=== PATIENT | female | born 1970 | race African-American/Black ===

== ENCOUNTER 2017-01-16 10:57 | Emergency (ER) | payer OTHER ==
[~2017-01-16] VITALS: Ht 172.7 cm; Wt 90.7 kg
--- NOTE | 2017-01-16 11:42 | ED GENERAL ADULT ---
History of Present Illness General Chief Complaint: Chest Pain Stated Complaint: CHEST PAIN Source: patient Exam Limitations: no limitations Vital Signs & Intake/Output Vital Signs & Intake/Output Vital Signs Date Time Temp Pulse Resp B/P Pulse O2 O2 Flow FiO2 Ox Delivery Rate 01/16 1226 99.0 90 22 123/60 94 Room Air 01/16 1112 98.8 84 18 138/82 99 Room Air Allergies Coded Allergies: NO KNOWN ALLERGIES (04/22/12) Triage Note: C/O COUGH, FEVER, SWEATING X 4 DAYS, CHEST PAIN X 3 DAYS. PAIN WORSE ON INSPIRATION. EKG DONE ON ARRIVAL. Triage Nurses Notes Reviewed? yes Onset: Gradual Duration: day(s):, continues in ED, intermittent Severity: severe : No Patient currently breastfeeds: No HPI: Patient presents for evaluation of chest pain or heart palpitations along with coughing, diarrhea, night sweats, chills and fever that began about 4 days ago. Patient has not been able to tolerate solid food and has resorted to a liquid diet. Patient also feels lightheaded with position changes. Nothing seems to make her feel better or worse. Patient also states she has had a nonproductive cough that seems to be improving. Past History Travel History Traveled to [place] past 21 day No Medical History Any Pertinent Medical History? see below for history Neurological: NONE EENT: NONE Cardiovascular: NONE Respiratory: NONE Gastrointestinal: NONE Hepatic: NONE Renal: NONE Musculoskeletal: NONE Psychiatric: NONE Endocrine: NONE Surgical History Surgical History: non-contributory Psychosocial History What is your primary language Syrian Tobacco Use: Never used Family History Hx Contributory? No Review of Systems Review of Systems Constitutional: Reports: see HPI. EENTM: Reports: no symptoms. Respiratory: Reports: cough. Cardiovascular: Reports: chest pain. GI: Reports: see HPI. Genitourinary: Reports: no symptoms. Musculoskeletal: Reports: no symptoms. Skin: Reports: no symptoms. Neurological/Psychological: Reports: no symptoms. Hematologic/Endocrine: Reports: no symptoms. Immunologic/Allergic: Reports: no symptoms. All Other Systems: Reviewed and Negative Physical Exam Physical Exam General Appearance: SEE BELOW Comments: Gen.: Well-nourished, well-developed, no acute respiratory distress. Head: Normocephalic, atraumatic. Eyes: Mildly sunken orbits Ears: Normal inspection bilaterally Nose: Normal inspection Throat/mouth : Moist mucosa, coated tongue Neck: Supple, full range of motion, no goiter Heart: Regular rate and rhythm, no murmurs rubs or gallops Lungs: Clear to auscultation bilaterally with normal air entry Chest: Nontender Back: Normal range of motion Abdomen: Soft, nontender, nondistended, normal bowel sounds Extremities: Normal range of motion grossly, equal radial pulses, no cyanosis clubbing or edema Neurologic: Cranial nerves grossly intact, speech is clear Skin: warm and dry, pallor Psychiatric: Calm, cooperative, no apparent delusions or hallucinations Core Measures ACS in differential dx? No CVA/TIA Diagnosis: No Severe Sepsis Present: No Septic Shock Present: No Progress Differential Diagnoses I considered the following diagnoses in my evaluation of the patient: Viral syndrome, coronary artery disease/acute coronary syndrome, chest wall strain Plan of Care: Orders Procedure Date/time Status VIRAL CULTURE 01/16 1147 Active RAPID VIRAL INFLUENZA A 01/16 114 Complete URINALYSIS 01/16 114 Active COMPREHENSIVE METABOLIC PANEL 01/16 1141 Active CBC WITHOUT DIFFERENTIAL 01/16 114 Complete EKG 01/16 1100 Active Laboratory Tests 01/16/17 1200: Sodium Pending, Potassium Pending, Chloride Pending, Carbon Dioxide Pending, Anion Gap Pending, BUN Pending, Creatinine Pending, BUN/Creatinine Ratio Pending , Glucose Pending, Calcium Pending, Total Bilirubin Pending, AST Pending, ALT Pending, Alkaline Phosphatase Pending, Total Protein Pending, Albumin Pending, Globulin Pending, Albumin/Globulin Ratio Pending, CBC w Diff NO MAN DIFF REQ, RBC 5.21, MCV 86.3, MCH 29.3, RDW 13.5, MPV 8.8, Gran % 66.3, Lymphocytes % 19.9 L, Monocytes % 13.3 H, Eosinophils % 0.1, Basophils % 0.4, Absolute Granulocytes 3.5, Absolute Lymphocytes 1.0 L, Absolute Monocytes 0.7 H, Absolute Eosinophils 0, Absolute Basophils 0, PUBS MCHC 34.0 01/16/17 1147: Virus Culture Pending Microbiology 01/16 1147 NASOPHARYN: Influenza Virus A & B Rapid Smear - COMP INFLUENZA TYPE A Initial ED EKG: none Departure Departure Disposition: HOME OR SELF CARE Condition: Stable Clinical Impression Primary Impression: Influenza A Secondary Impressions: Chest wall muscle strain Qualifiers: Encounter type: initial encounter Qualified Code: S29.011A - Strain of muscle and tendon of front wall of thorax, initial encounter Referrals: TRINA VANG MD (PCP/Family) Additional Instructions: Zofran as needed for nausea or vomiting. Maintain a good fluid intake and advance diet from clear liquids to regular diet as tolerated. With your primary care doctor on Sunday if not improved. Return if any concerns or sudden worsening. Thank you for choosing the [facility] Emergency Department for your care. It was a pleasure to serve you today. Jesse Sorensen M.D. [facility] Departure Forms: Customer Survey General Discharge Information Prescriptions: Current Visit Scripts Ondansetron (Zofran Odt) 1 TAB SL Q6P PRN NAUSEA/VOMITING #10 TAB Critical Care Note Critical Care Note Critical Care Time: non-applicable
[2017-01-16 12:11] LABS: ABSOLUTE BASOPHIL COUNT 0 /CUMM (0.0-0.2); ABSOLUTE EOSINOPHIL COUNT 0 /CUMM (0.0-0.7); ABSOLUTE GRANULOCYTE CT 3.5 /CUMM (1.4-6.5); ABSOLUTE MONOCYTE COUNT 0.7 /CUMM (0.10-0.60); BASOPHIL % 0.4 % (0.0-2.0); EOSINOPHIL % 0.1 % (0-5); GRANULOCYTE % 66.3 % (42.2-75.2); HEMATOCRIT 44.9 % (37-47); MEAN CORPUSCULAR HGB 29.3 PG (27.0-31.0); MEAN CORPUSCULAR VOLUME 86.3 FL (81.0-99.0); MEAN PLATELET VOLUME 8.8 FL (7.4-10.4); PLATELET COUNT 177 /CUMM (130-400); RBC DISTRIBUTION WIDTH 13.5 % (11.5-14.5); RED BLOOD CELL CT 5.21 /CUMM (4.20-5.40); WHITE BLOOD CELL COUNT 5.2 /CUMM (4.8-10.8)
[2017-01-16] MEDS ORDERED: ZOFRAN ODT4 M1 SL (12:43)
[2017-01-16 13:24] VITALS: BP 120/74
== END 2017-01-16 13:24 ==
LOC: ERH 10:57
PROVIDERS: Emergency Medicine
DX: S29.011A Strain of muscle and tendon of front wall of thorax, initial encounter (principal); J10.1 Influenza due to other identified influenza virus with other respiratory manifestations; R07.9 Chest pain, unspecified; X58.XXXA Exposure to other specified factors, initial encounter; Y92.9 Unspecified place or not applicable; Y93.9 Activity, unspecified
CPT/HCPCS: 87804; 87804-59; 93005; 93010; 96360

== ENCOUNTER 2017-10-10 17:24 | Emergency (ER) | payer OTHER ==
[~2017-10-10] VITALS: Ht 175.3 cm; Wt 90.7 kg
[~2017-10-10 17:24] MED LIST: ZOFRAN ODT4 M1 SL
[2017-10-10 17:31] VITALS: BP 146/84
--- NOTE | 2017-10-10 17:33 | ED MVC/FALL/TRAUMA COMPLAINT ---
History of Present Illness General Chief Complaint: Fall Stated Complaint: WORK INJURY YESTERDAY, FALL, +HEADSTRIKE Source: patient, old records Exam Limitations: no limitations Vital Signs & Intake/Output Vital Signs & Intake/Output Vital Signs Date Time Temp Pulse Resp B/P B/P Pulse O2 O2 Flow FiO2 Mean Ox Delivery Rate 10/10 1814 98 Room Air 10/10 1731 96.1 83 18 146/84 96 Room Air Allergies Coded Allergies: NO KNOWN ALLERGIES (04/22/12) Reconcile Medications No Known Home Medications Triage Note: PT TO ER C/C HEAD PAIN, LEFT KNEE PAIN, AND BILATERAL SHOULDER PAIN S/P TRIP AND FALL OVER BOX AT WORK YESTERDAY. + HEADSTRIKE. DENIES NECK PAIN. DOES NOT TAKE BLOOD THINNERS Triage Nurses Notes Reviewed? yes Onset: Abrupt Duration: day(s): (2), constant Timing: recent history Severity: moderate Severity Numbers: 7 Injuries/Fall Location: head Method of Injury: fall Loss of Consciousness: no loss of consciousness No Modifying Factors: none Associated Symptoms: DENIES : No Patient currently breastfeeds: No HPI: 47-year-old female no medical history presents to the ER status post mechanical fall yesterday while at work. Patient states she was carrying boxes it did not see something on the ground in front of her causing her to fall over landing first on her left knee then hitting her head. She is also complaining of bilateral arm soreness. She denies any difficulty with range motion of her arms. No neck or back pain. She states she did not blackout there is no headache she denies nausea no vomiting. She states he'll reason she is here is because of her left knee which is been swollen. She states it is worse with range of motion and weightbearing better at rest. Pain is fairly 7 out of 10 she is declining anything for pain when offered and has not taken anything for her symptoms (Felix Waters) Past History Travel History Traveled to [place] past 21 day No Medical History Any Pertinent Medical History? none Neurological: NONE EENT: NONE Cardiovascular: NONE Respiratory: NONE Gastrointestinal: NONE Hepatic: NONE Renal: NONE Musculoskeletal: NONE Psychiatric: NONE Endocrine: NONE Surgical History Surgical History: non-contributory Psychosocial History What is your primary language Icelandic Tobacco Use: Never used Family History Hx Contributory? No (Felix Waters) Review of Systems Review of Systems Constitutional: Reports: see HPI. Comments Review of systems: See HPI, All other systems negative. Constitutional, no chills no fever, no malaise HEENT: no sore throat no congestion, no ear pain Cardiovascular: No chest pain , no palpitation Skin: no rashes, no change in skin Respiratory: No dyspnea no cough no sputum GI: No nausea no vomiting Muscle skeletal: joint pain, no back pain, no neck pain, Neurologic: , no headache Psych: No stress Heme/endocrine: No bruising Immunology: No lymphadenopathy (Felix Waters) Physical Exam Physical Exam General Appearance: well developed/nourished, alert, awake Comments: Well-developed well-nourished person in no acute distress HEENT: Normal EENT exam; PERRL, EOMI, no nystagmus. HEAD is atraumatic. moist mucous membranes. No scalp hematoma Neck: Supple, nontender, normal range of motion Back: Nontender,Full range of motion Cardiovascular: Regular rate and rhythms no murmurs Respiratory: No respiratory distress. Patient speaking in full complete sentences. Breath sounds clear to auscultation bilaterally: NO W/R/R Abdomen: Soft, nontender nondistended, no appreciable organomegaly. Normal bowel sounds. No rebound/guarding, Shoulder: Atraumatic/Stable. FROM . Elbow: Atraumatic/stable. FROM. No laxity Upper arm/Forearm: Atraumatic. Nontender. 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 Skin intact. FROM Pulses: Normal/equal radial pulses bilaterally. Brisk cap refill Hip/Pelvis: Atraumatic/Stable. FROM. Knee: 2" x 2" hematoma noted to the left anterior knee, the skin is intact stable. Limited range of motion secondary to pain No joint swelling, no effusion. No laxity. Negative ward/anterior drawer test. Leg: Atraumatic. Nontender. No edema, 5 out of 5 strength in the lower extremity, normal dorsiflexion of great toe bilaterally, gross sensation is intact, patellar tendon reflex 2+ bilaterally. Ankle/Foot: Atraumatic/stable. Skin intact. FROM. No swelling, no effusion. No laxity on exam Pulses: Normal/equal DP/PT pulses bilaterally. Brisk cap refill Neuro: Alert oriented x3, motor sensory normal, cranial nerves II through XII grossly intact. There were no obvious focal neurologic abnormalities. Skin: No appreciable rash on exposed skin, skin is warm and dry. Psych: Mood and affect is normal, memory and judgment is normal. Core Measures ACS in differential dx? No CVA/TIA Diagnosis No Sepsis Present: No Sepsis Focused Exam Completed? No (Randi LINDSEY,Felix) Progress Differential Diagnosis: C/T/L spine injury, ext injury, ICH, spinal cord injury, CONCUSSION, FX, SPRAIN CONTUSION Plan of Care: Orders Procedure Date/time Status Durable Medical Equipment 10/10 1840 Active pt ambulatory to room 9 with steady gait. X-ray ordered patient is declining anything for pain when offered. I discussed with the patient at length all of their results. Leg immobilizerp provided, pt declining to put it on at tis time. I had an extensive conversation regarding need for close follow up with their primary care physicia /ORTHO this week as well as return precautions. I answered all of their questions, they feel comfortable with the plan and follow-up care. I discussed with the patient/family the medications that they will receive. I gave them signs and symptoms that could indicate an adverse reaction. I have advised them to limit their activities until they can see how they respond to the medication. Diagnostic Imaging: Viewed by Me: Radiology Read. Discussed w/RAD: Radiology Read. Radiology Impression: PATIENT: YOUSIF MANRIQUE PRESENT AGE: 47 PATIENT ACCOUNT NO: [id number] : 72 LOCATION: [facility] ORDERING PHYSICIAN: Felix LINDSEY SERVICE DATE: 10/10/17 EXAM TYPE: RAD - XRY- KNEE COMPLETE LEFT EXAMINATION: LEFT KNEE 3 VIEWS CLINICAL INFORMATION: Left knee pain after fall. COMPARISON: None. TECHNIQUE: AP, lateral, oblique views of the left knee were obtained. FINDINGS: There are no fractures or dislocations. There is mild medial compartment narrowing. There is no knee joint effusion. There is no significant soft tissue swelling. There is mild superior patellar spurring. There is mild soft tissue swelling overlying the tibial tuberosity. IMPRESSION: Mild soft tissue swelling overlying the tibial tuberosity. No acute fracture identified. Mild degenerative change. DICTATED BY: Ed Resendiz MD DATE/TIME DICTATED:10/10/171829 TUBE HEATER:ANILA DATE/TIME TRANSCRIBED:10/10/171829 CONFIDENTIAL, DO NOT COPY WITHOUT APPROPRIATE AUTHORIZATION. <Electronically signed in Other Vendor System> SIGNED BY: Ed Resendiz MD 10/10/171836 (Felix Waters) Departure Departure Time of Disposition: 1842 Disposition: HOME OR SELF CARE Condition: Stable Clinical Impression Primary Impression: Knee sprain Secondary Impressions: Minor head injury Referrals: Yumiko FAYE,Dejuan Moss Additional Instructions: Rest ice and elevate leg, Motrin for pain follow-up with orthopedist Dr. martinez symptoms persist leg immobilizer as discussed. Departure Forms: General Discharge Information Industrial Accident Report Prescriptions: Current Visit Scripts No Known Home Medications (Felix Waters) PA/DIRECTOR DIG[employer] CATALOGUE Co-Sign Statement Statement: ED Attending supervision documentation- [] I saw and evaluated the patient. I have also reviewed all the pertinent lab results and diagnostic results. I agree with the findings and the plan of care as documented in the PA's/DIRECTOR D[employer]ALOGUE's documentation. [X] I have reviewed the ED Record and agree with the PA's/DIRECTOR [employer]ALOGUE's documentation. [] Additions or exceptions (if any) to the PAs/DIRECTOR [employer]ALOGUE's note and plan are summarized below: [] (Diane FAYE,Luiz Gaffney)
--- NOTE | 2017-10-10 18:37 | RADIOLOGY REPORT ---
EXAMINATION: LEFT KNEE 3 VIEWS CLINICAL INFORMATION: Left knee pain after fall. COMPARISON: None. TECHNIQUE: AP, lateral, oblique views of the left knee were obtained. FINDINGS: There are no fractures or dislocations. There is mild medial compartment narrowing. There is no knee joint effusion. There is no significant soft tissue swelling. There is mild superior patellar spurring. There is mild soft tissue swelling overlying the tibial tuberosity. IMPRESSION: Mild soft tissue swelling overlying the tibial tuberosity. No acute fracture identified. Mild degenerative change.
== END 2017-10-10 18:52 ==
LOC: ERH 17:24
DX: S83.92XA Sprain of unspecified site of left knee, initial encounter (principal); W19.XXXA Unspecified fall, initial encounter; Y92.9 Unspecified place or not applicable; Y93.9 Activity, unspecified
CPT/HCPCS: 73562-LT